=== PATIENT | male | born 1960 | race Caucasian/White ===

== ENCOUNTER 2017-02-09 13:33 | Emergency (ER) | payer OTHER ==
[~2017-02-09] VITALS: Ht 182.9 cm; Wt 135.0 kg
[2017-02-09 13:43] VITALS: BP 151/96; PULSE 63; RESP 18; TEMP 98.5; O2SAT 96
[2017-02-09 13:45] VITALS: BP 151/96; PULSE 65; RESP 18; O2SAT 98
--- NOTE | 2017-02-09 13:59 | PD ---
Physical Exam Date Seen by Provider: Feb 09, 2017 Time Seen by Provider: 13:58 Narrative 56 YOWM STEEPED INTO A METAL GRATING. TWISTED R ANKLE 8/10 PAIN. NO OTHER INJURIES VS NOTED WAITING FOR BED PLACEMENT Data Data Last Documented VS Vital Signs Date Time Temp Pulse Resp B/P (MAP) Pulse Ox O2 Delivery O2 Flow Rate FiO2 02/09/17 13:45 65 18 151/96 (114) 98 Room Air 02/09/17 13:43 98.5 Orders Orders Ankle, Complete ([id number]) (02/09/17 13:39) Ice/Cold Pack (02/09/17 13:39) MDM Medical Record Reviewed: No Supervised Visit with HUEY: Yes Marquez Armendariz Feb 09, 2017 13:59
--- NOTE | 2017-02-09 14:06 | PD ---
HPI Chief Complaint: Injury Time Seen by Provider: 14:06 Travel History International Travel<30 days: No Contact w/Intl Traveler<30days: No Traveled to known affect area: No History of Present Illness HPI 56-year-old male presents to the emergency department via [facility] with complaint of right ankle pain and left forearm pain after falling through a metal grate down about 2 feet today while at work. He said he fell straight down into a hole and he did not hit his head or lose consciousness. He denies neck pain, back pain, hip pain, knee pain. Ankle pain is to the medial aspect. Left Forearm pain is proximal near the elbow. Has full range of motion at the elbow and denies elbow pain. Denies paresthesias, loss of sensation, decreased range of motion, decreased strength of the left upper extremity. Denies paresthesias , loss of sensation to the right lower extremity. Denies chest pain, shortness of breath, abdominal pain, vomiting. Has not taken any medications or tried any treatments to alleviate symptoms. Pain is constant and aggravated by movement. Has no other medical complaints. No known allergies. No other modifying factors or associated signs and symptoms. PFSH Past Medical History Respiratory: Yes Social History Tobacco Use: No Allergies-Medications (Allergen,Severity, Reaction): Coded Allergies: No Known Allergies (Unverified , 02/09/17) Reported Meds & Prescriptions Reported Meds & Active Scripts Active Ibuprofen 800 Mg Tab 800 Mg PO Q6HR PRN Review of Systems Except as stated in HPI: all other systems reviewed are Neg Physical Exam Narrative GENERAL: Well-nourished, well-developed male patient, in no acute distress SKIN: Warm and dry. HEAD: Atraumatic. Normocephalic. EYES: Pupils equal and round. No scleral icterus. No injection or drainage. ENT: Mucosa pink and moist. Airway patent. NECK: Trachea midline. CARDIOVASCULAR: Regular rate. RESPIRATORY: No accessory muscle use. GASTROINTESTINAL: Obese. MUSCULOSKELETAL: Right ankle with point tenderness to the medial malleolar zone with palpation; minimal edema; without ecchymosis or erythema; no obvious deformities may: 2+ pedal pulse. Right lower exudate is supple and non-tense with 2+ pedal pulse and sensory intact. Left proximal forearm with edema and ecchymosis noted; no obvious deformity; with tenderness on palpation. 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 No obvious deformities. No clubbing. No cyanosis. No edema. NEUROLOGICAL: Awake and alert. Oriented 3. No obvious cranial nerve deficits. Motor grossly within normal limits. Normal speech. PSYCHIATRIC: Appropriate mood and affect; insight and judgment normal. Data Data Last Documented VS Vital Signs Date Time Temp Pulse Resp B/P (MAP) Pulse Ox O2 Delivery O2 Flow Rate FiO2 02/09/17 13:45 65 18 151/96 (114) 98 Room Air 02/09/17 13:43 98.5 Orders Orders Ankle, Complete ([id number]) (02/09/17 13:39) Ice/Cold Pack (02/09/17 13:39) Splint Or Brace Apply/Monitor (02/09/17 14:08) Crutches (02/09/17 14:08) Hydromorphone Pf Inj (Dilaudid Pf Inj) (02/09/17 14:15) Ondansetron Odt (Zofran Odt) (02/09/17 14:15) Forearm (2vws) (02/09/17 14:11) MDM Medical Decision Making Medical Screen Exam Complete: Yes Emergency Medical Condition: Yes Medical Record Reviewed: Yes Differential Diagnosis Ankle fracture, ankle sprain, forearm fracture, forearm contusion Narrative Course 56-year-old male with right ankle injury and left forearm injury after falling into a fall through a metal grate while at work today. Arrived via [facility]. He fell strait down about 2 feet. He did not hit his head or lose consciousness. He denies neck pain or back pain. 1434: I spoke is Dr. Leger and he recommended splinting, nonweightbearing, and to follow-up with orthopedics within 1 week. Dutton splint ordered. Crutches ordered. 1449: Left forearm x-ray with no acute findings. Ibuprofen, Percocet prescribed for home. Walker prescribed for home. Crutches provided for support. Inserted patient nonweightbearing until follow-up with orthopedic surgeon within 1 week. Patient verbalized understanding and agreement. Instructed patient to follow up with primary care provider. Patient verbalizes understanding and agreement with treatment plan. Patient is medically cleared and stable for discharge. Discussed reasons to return to the emergency department. Patient agrees with treatment plan. The patients vital signs are stable and the patient is stable for outpatient follow-up and treatment. Patient discharged home, stable and in no acute distress. Diagnosis Primary Impression: Closed right ankle fracture Qualified Codes: S82.891A - Other fracture of right lower leg, initial encounter for closed fracture Additional Impression: Contusion of left forearm Qualified Codes: S50.12XA - Contusion of left forearm, initial encounter Referrals: Nestor Leger MD Orthopaedic Surgeon Primary Care Physician Patient Instructions: Ankle Fracture (ED), Crutch Instructions (ED), General Instructions Additional Instructions: Tylenol or ibuprofen as directed and as needed for pain and inflammation Rest, ice, compress, and elevate extremity to decrease pain and inflammation Splint for support; do not remove splint until cleared Crutches for support Avoid aggravating activity; increase activity as tolerated Follow-up with primary care provider Return to the emergency department immediately with worsening of symptoms Med/Other Pt SpecificInfo: Prescription(s) given Scripts Walker/Adult/Folding (Walker/Adult/Folding) 1 Mis Mis EA .ROUTE DIRECTED, #1 0 Refills Prov: Regla Raymundo 02/09/17 Ibuprofen (Ibuprofen) 800 Mg Tab 800 MG PO Q6HR Y for PAIN, #30 TAB 0 Refills Prov: Regla Raymundo 02/09/17 Disposition: 01 DISCHARGE HOME Condition: Stable Regla Raymundo Feb 09, 2017 14:06
--- NOTE | 2017-02-09 14:10 | RADRPT ---
EXAM DATE/TIME: 02/09/2017 14:00 [facility] COMPARISON: No previous studies available for comparison. INDICATIONS : Right ankle pain after falling thru a metal grate today. MEDICAL HISTORY : None. SURGICAL HISTORY : None. ENCOUNTER: Initial ACUITY: 1 day PAIN SCORE: 10/10 LOCATION: Right lateral ankle. FINDINGS: There is a complete intra-articular fracture of the left distal tibia towards the medial aspect of th e medial malleolus without any angulation or displacement. CONCLUSION: Intra-articular distal tibial fracture. Diane Oliva MD on February 09, 2017 at 14:08 Board Certified Radiologist. This report was verified electronically.
--- NOTE | 2017-02-09 14:11 | PD ---
HPI Chief Complaint: Injury Time Seen by Provider: 14:11 Travel History International Travel<30 days: No Contact w/Intl Traveler<30days: No Traveled to known affect area: No PFSH Past Medical History Respiratory: Yes Allergies-Medications (Allergen,Severity, Reaction): Coded Allergies: No Known Allergies (Unverified , 02/09/17) Reported Meds & Prescriptions Reported Meds & Active Scripts Active Percocet (Oxycodone-Acetaminophen) 5-325 mg Tab 1-2 Tab PO Q6H PRN Walker/Adult/Folding (Device) 1 Mis Mis Ea .ROUTE DIRECTED Ibuprofen 800 Mg Tab 800 Mg PO Q6HR PRN Data Data Last Documented VS Vital Signs Date Time Temp Pulse Resp B/P (MAP) Pulse Ox O2 Delivery O2 Flow Rate FiO2 02/09/17 15:03 02/09/17 13:45 65 18 98 Room Air 02/09/17 13:43 98.5 Orders Orders Ankle, Complete ([id number]) (02/09/17 13:39) Ice/Cold Pack (02/09/17 13:39) Splint Or Brace Apply/Monitor (02/09/17 14:08) Crutches (02/09/17 14:08) Hydromorphone Pf Inj (Dilaudid Pf Inj) (02/09/17 14:15) Ondansetron Odt (Zofran Odt) (02/09/17 14:15) Forearm (2vws) (02/09/17 14:11) Fiberglass Short Leg Splint Ad (02/09/17 ) Fiberglass Sugartong Sp Ad Sl (02/09/17 ) MDM Scripts Oxycodone-Acetaminophen (Percocet) 5-325 mg Tab 1-2 TAB PO Q6H Y for PAIN, #30 TAB 0 Refills Prov: Shwetha Dye MD 02/09/17 Walker/Adult/Folding (Walker/Adult/Folding) 1 Mis Mis EA .ROUTE DIRECTED, #1 0 Refills Prov: Regla Raymundo 02/09/17 Ibuprofen (Ibuprofen) 800 Mg Tab 800 MG PO Q6HR Y for PAIN, #30 TAB 0 Refills Prov: Regla Raymundo 02/09/17 Regla Raymundo Feb 09, 2017 14:11
[2017-02-09] MEDS ORDERED: ONDANSETRON ODT 4 MG TAB PO ONE (14:15)
[2017-02-09] MEDS ORDERED: HYDROmorphone HCL PF 1 MG/ML VIAL IM ONE (14:15)
[2017-02-09] MEDS ORDERED: IBUP800T23 PO (14:38)
--- NOTE | 2017-02-09 14:46 | RADRPT ---
EXAM DATE/TIME: 02/09/2017 14:33 [facility] COMPARISON: No previous studies available for comparison. INDICATIONS : Left medial forearm pain after falling thru a metal grate today. MEDICAL HISTORY : None. SURGICAL HISTORY : None. ENCOUNTER: Initial ACUITY: 1 day PAIN SCORE: 8/10 LOCATION: Left medial forearm. FINDINGS: No definite fractures, or dislocations are identified. No definite lytic or sclerotic lesion is seen . CONCLUSION: Unremarkable study. Diane Oliva MD on February 09, 2017 at 14:44 Board Certified Radiologist. This report was verified electronically.
[2017-02-09] MEDS ORDERED: WALKER/ADULT/FO1 MIS (14:48)
[2017-02-09] MEDS ORDERED: PERC5TAB12 PO (14:51)
== END 2017-02-09 15:34 | disposition home or self-care (01) ==
LOC: NEPK 13:33
DX: S82.891A Other fracture of right lower leg, initial encounter for closed fracture (principal); S50.12XA Contusion of left forearm, initial encounter; W17.2XXA Fall into hole, initial encounter
CPT/HCPCS: 29515; 73090; 73610; 96372; 99284; E0113; J1170